=== PATIENT | female | born 1965 | race African-American/Black ===

== ENCOUNTER 2016-06-12 11:26 | Emergency (ER) | payer BC, MEDICAID ==
[~2016-06-12] VITALS: Ht 162.6 cm; Wt 64.5 kg
[~2016-06-12 11:26] MED LIST: DICL50TA3 PO; HYDR-3533 PO; METH750T2 PO; METHO500 PO; NORV5TAB PO; PRAV10 PO
[2016-06-12 11:31] VITALS: BP 122/81; PULSE 96; RESP 16; TEMP 99.6; O2SAT 98
[2016-06-12] MEDS ORDERED: AMLO5TAB2 PO (11:39)
[2016-06-12] MEDS ORDERED: IBUPROFEN 800 MG TAB PO ONE (11:45)
[2016-06-12] MEDS ORDERED: SODIUM CHLOR 0.9% 1000 ML INJ 1,000 ML IV ONE (11:45)
--- NOTE | 2016-06-12 11:59 | PD ---
HPI Chief Complaint: Cold / Flu Symptoms Time Seen by Provider: 11:45 Travel History International Travel<30 days: No Contact w/Intl Traveler<30days: No Traveled to known affect area: No History of Present Illness HPI Patient is a 50-year-old female who presents emergency department for evaluation of cough, fevers, muscle aches, weakness, congestion. Patient's symptoms started approximately 3 days ago, she reports decreased appetite and poor oral intake. She states she's had a fever for the last 3 days, taking ibuprofen and BC powder. The BC powder was last dosed approximately 3 hours ago. Patient reports coughing up yellow-green sputum, patient endorses tobacco use. Patient states that muscle aches in her legs have gotten progressively worse, more so on the right than the left. Patient states she has a history of rhabdomyolysis and her symptoms feel consistent with what she has had in the past. Patient denies any IV drug use. She reports her pain is a 7-10 and describes as aching PFSH Past Medical History Hx Anticoagulant Therapy: No Arthritis: Yes (RHEUMATOID STARTED JUVENILE ) Anxiety: Yes Depression: No Cancer: No Cardiovascular Problems: Yes (HTN) High Cholesterol: Yes Diabetes: No Diminished Hearing: No Endocrine: No Headaches: Yes Hypertension: Yes Immune Disorder: No Psychiatric: Yes Migraines: Yes ?: Not Tubal Ligation: Yes (1986) Past Surgical History Gynecologic Surgery: Yes (TUBAL LIGATION, HYSTERECTOMY ) Hysterectomy: Yes Oral Surgery: Yes (TONSILLECTOMY ) Tonsillectomy: Yes (AGE 23) Other Surgery: Yes Social History Alcohol Use: No Tobacco Use: No Substance Use: No Allergies-Medications (Allergen,Severity, Reaction): Coded Allergies: No Known Allergies (Verified , 06/12/16) Reported Meds & Prescriptions Reported Meds & Active Scripts Active Reported Amlodipine (Amlodipine Besylate) 5 Mg Tab 5 Mg PO DAILY Review of Systems Except as stated in HPI: all other systems reviewed are Neg General / Constitutional: Positive: Fever, Chills, Other (fatigue) HENT: Positive: Congestion, No: Headaches, Lightheadedness Cardiovascular: No: Chest Pain or Discomfort Respiratory: Positive: Cough, Pleuritic Pain Gastrointestinal: No: Nausea, Vomiting, Diarrhea, Abdominal Pain Musculoskeletal: Positive: Myalgias, Pain Neurologic: Positive: Weakness, No: Dizziness, Syncope, Focal Abnormalities Physical Exam Narrative GENERAL: Thin, well-developed, alert female. Appears uncomfortable, in no acute distress. SKIN: Warm and dry. HEAD: Atraumatic. Normocephalic. EYES: Pupils equal and round. No scleral icterus. No injection or drainage. ENT: No nasal bleeding or discharge. Mucous membranes pink and moist. NECK: Trachea midline. No JVD. CARDIOVASCULAR: Regular rate and rhythm. No murmur appreciated. RESPIRATORY: No accessory muscle use. Diminished in bases bilaterally, no wheezes, rhonchi, or rales noted. GASTROINTESTINAL: Abdomen soft, non-tender, nondistended. Hepatic and splenic margins not palpable. MUSCULOSKELETAL: No obvious deformities. No clubbing. No cyanosis. No edema. Tenderness to palpation in bilateral thighs, ankles. 4/5 muscle strength in bilateral lower extremities. Positive pedal pulses. NEUROLOGICAL: Awake and alert. No obvious cranial nerve deficits. Normal speech. PSYCHIATRIC: Appropriate mood and affect; insight and judgment normal. Data Data Last Documented VS Vital Signs Date Time Temp Pulse Resp B/P Pulse Ox O2 Delivery O2 Flow Rate FiO2 06/12/16 11:31 99.6 96 16 122/81 98 Orders Complete Blood Count With Diff (06/12/16 11:43) Creatine Kinase (Cpk) (06/12/16 11:43) Comprehensive Metabolic Panel (06/12/16 11:43) Influenzae A/B Antigen (06/12/16 11:43) Iv Access Insert/Monitor (06/12/16 11:43) Ibuprofen (Motrin) (06/12/16 11:45) Sodium Chlor 0.9% 1000 Ml Inj (Ns 1000 M (06/12/16 11:45) Chest, Pa & Lat (06/12/16 ) CKMB (06/12/16 11:50) CKMB% (06/12/16 11:50) Labs Laboratory Tests Test 06/12/16 11:50 White Blood Count 6.2 TH/MM3 Red Blood Count 4.74 MIL/MM3 Hemoglobin 14.4 GM/DL Hematocrit 42.4 % Mean Corpuscular Volume 89.5 FL Mean Corpuscular Hemoglobin 30.4 PG Mean Corpuscular Hemoglobin 33.9 % Concent Red Cell Distribution Width 13.6 % Platelet Count 293 TH/MM3 Mean Platelet Volume 7.3 FL Neutrophils (%) (Auto) 73.2 % Lymphocytes (%) (Auto) 11.6 % Monocytes (%) (Auto) 12.5 % Eosinophils (%) (Auto) 1.9 % Basophils (%) (Auto) 0.8 % Neutrophils # (Auto) 4.6 TH/MM3 Lymphocytes # (Auto) 0.7 TH/MM3 Monocytes # (Auto) 0.8 TH/MM3 Eosinophils # (Auto) 0.1 TH/MM3 Basophils # (Auto) 0.0 TH/MM3 CBC Comment DIFF FINAL Differential Comment Sodium Level 143 MEQ/L Potassium Level 3.7 MEQ/L Chloride Level 110 MEQ/L Carbon Dioxide Level 24.6 MEQ/L Anion Gap 8 MEQ/L Blood Urea Nitrogen 12 MG/DL Creatinine 0.68 MG/DL Estimat Glomerular Filtration 110 ML/MIN Rate Random Glucose 74 MG/DL Calcium Level 7.9 MG/DL Total Bilirubin 0.2 MG/DL Aspartate Amino Transf 16 U/L (AST/SGOT) Alanine Aminotransferase 19 U/L (ALT/SGPT) Alkaline Phosphatase 86 U/L Total Creatine Kinase 215 U/L Creatine Kinase MB 0.7 NG/ML Creatine Kinase MB % 0.3 % Total Protein 6.9 GM/DL Albumin 3.4 GM/DL MDM Medical Decision Making Medical Screen Exam Complete: Yes Emergency Medical Condition: Yes Interpretation(s) Last Impressions Chest X-Ray 06/12/16 0000 Signed Impressions: Service Date/Time: Sunday, June 12, 2016 13:05 - CONCLUSION: No acute cardiopulmonary abnormality is identified. Vlad Hart MD Laboratory Tests Test 06/12/16 11:50 White Blood Count 6.2 TH/MM3 Red Blood Count 4.74 MIL/MM3 Hemoglobin 14.4 GM/DL Hematocrit 42.4 % Mean Corpuscular Volume 89.5 FL Mean Corpuscular Hemoglobin 30.4 PG Mean Corpuscular Hemoglobin 33.9 % Concent Red Cell Distribution Width 13.6 % Platelet Count 293 TH/MM3 Mean Platelet Volume 7.3 FL Neutrophils (%) (Auto) 73.2 % Lymphocytes (%) (Auto) 11.6 % Monocytes (%) (Auto) 12.5 % Eosinophils (%) (Auto) 1.9 % Basophils (%) (Auto) 0.8 % Neutrophils # (Auto) 4.6 TH/MM3 Lymphocytes # (Auto) 0.7 TH/MM3 Monocytes # (Auto) 0.8 TH/MM3 Eosinophils # (Auto) 0.1 TH/MM3 Basophils # (Auto) 0.0 TH/MM3 CBC Comment DIFF FINAL Differential Comment Sodium Level 143 MEQ/L Potassium Level 3.7 MEQ/L Chloride Level 110 MEQ/L Carbon Dioxide Level 24.6 MEQ/L Anion Gap 8 MEQ/L Blood Urea Nitrogen 12 MG/DL Creatinine 0.68 MG/DL Estimat Glomerular Filtration 110 ML/MIN Rate Random Glucose 74 MG/DL Calcium Level 7.9 MG/DL Total Bilirubin 0.2 MG/DL Aspartate Amino Transf 16 U/L (AST/SGOT) Alanine Aminotransferase 19 U/L (ALT/SGPT) Alkaline Phosphatase 86 U/L Total Creatine Kinase 215 U/L Creatine Kinase MB 0.7 NG/ML Creatine Kinase MB % 0.3 % Total Protein 6.9 GM/DL Albumin 3.4 GM/DL Vital Signs Date Time Temp Pulse Resp B/P Pulse Ox O2 Delivery O2 Flow Rate FiO2 06/12/16 11:31 99.6 96 16 122/81 98 Differential Diagnosis Bronchitis versus pneumonia versus rhabdomyolysis versus influenza versus myalgias versus viral syndrome versus other Narrative Course Patient is a 50-year-old female who presents emergency department for evaluation of myalgias, fever, cough. Patient is a history of rhabdomyolysis, that coupled with her physical presentation and reported fevers for the last 3 days prompted labs and imaging. CBC and chemistry are unremarkable, CPK is very slightly elevated at 215. Chest x-ray is normal, influenza is negative. Patient is encouraged to continue symptom management. She will also be provided with a prescription for an antibiotic, due to the fevers, and her tobacco use she may be prone to atypical bacteria. Additionally patient has chronic muscle aches in her lower extremities, this seems to be exacerbated by her current illness. Patient will be provided with a prescription for a muscle relaxer. She is encouraged follow-up with her primary doctor or return to emergency department for any new or worsening symptoms. Patient verbalized understanding of these instructions. Patient is stable for discharge. Diagnosis Primary Impression: Acute bronchitis Qualified Code: J20.9 - Acute bronchitis, unspecified organism Additional Impression: Myalgia Referrals: Primary Care Physician 2 days Patient Instructions: Acute Bronchitis (ED), General Instructions Additional Instructions: Continue symptom management Take medications as directed Maintain adequate fluid intake Follow-up with your primary doctor Return to emergency department for any new or worsening symptoms Med/Other Pt SpecificInfo: Prescription(s) given Scripts Albuterol 18 GM Inh (Ventolin Hfa 18 GM Inh)90 Mcg/Act Aer2 Puff INH Q4-6H PRN ( SHORTNESS OF BREATH) #1 INHALER Ref 0 Prov:Aneta Macias 06/12/16 Azithromycin 250 Mg [id number] Mg PO DIRECTED #6 TAB Ref 0 Take 2 tabs (500 mg) on day 1 then 1 tab daily x 4 days. Prov:Aneta Macias 06/12/16 Cyclobenzaprine (Flexeril)10 Mg Tab10 Mg PO TID PRN (MUSCLE SPASM) 10 Days Ref 0 Prov:Aneta Macias 06/12/16 Ibuprofen 800 Mg [id number] Mg PO Q6HR PRN (PAIN) #40 TAB Ref 0 Prov:Aneta Macias 06/12/16 Disposition: 01 DISCHARGE HOME Condition: Stable Aneta Macias Jun 12, 2016 11:59
[2016-06-12 12:02] LABS: AUTOMATED NEUTROPHIL # 4.6 TH/MM3 (1.8-7.7); BASOPHIL % 0.8 % (0.0-2.0); EOSINOPHIL # 0.1 TH/MM3 (0-0.4); EOSINOPHIL % 1.9 % (0.0-4.0); HEMATOCRIT 42.4 % (35.0-46.0); HEMO FLAGS DIFF FINAL; LYMPH % 11.6 % (9.0-44.0); LYMPHOCYTE # 0.7 TH/MM3 (1.0-4.8); MEAN CELL VOLUME 89.5 FL (80.0-100.0); MEAN CORPUSCULAR HEMOGLOBIN 30.4 PG (27.0-34.0); MEAN CORPUSCULAR HGB CONC 33.9 % (32.0-36.0); MONO % 12.5 % (0.0-8.0); NEUT % 73.2 % (16.0-70.0); PLATELET COUNT 293 TH/MM3 (150-450); RED BLOOD COUNT 4.74 MIL/MM3 (4.00-5.30); RED CELL DISTRIBUTION WIDTH 13.6 % (11.6-17.2); WHITE BLOOD COUNT 6.2 TH/MM3 (4.0-11.0)
[2016-06-12 12:08] LABS: CHLORIDE 110 MEQ/L (98-107); POTASSIUM 3.7 MEQ/L (3.5-5.1); SODIUM (NA) 143 MEQ/L (136-145)
[2016-06-12 12:12] LABS: ANION GAP 8 MEQ/L (5-15); BICARBONATE 24.6 MEQ/L (21.0-32.0); BLOOD UREA NITROGEN 12 MG/DL (7-18)
[2016-06-12 12:15] LABS: ALT (GPT) 19 U/L (10-53); AST (GOT) 16 U/L (15-37); GLOMERULAR FILTRATION RATE 110 ML/MIN (>89)
[2016-06-12 12:16] LABS: TOTAL BILIRUBIN ADULT 0.2 MG/DL (0.2-1.0)
[2016-06-12 12:18] LABS: ALKALINE PHOSPHATASE 86 U/L (45-117); CREATINE KINASE 215 U/L (26-192)
[2016-06-12 13:00] LABS: CKMB 0.7 NG/ML (0.5-3.6)
--- NOTE | 2016-06-12 13:27 | RADHPO ---
EXAM DATE/TIME: 06/12/2016 13:05 [facility] COMPARISON: No previous studies available for comparison. INDICATIONS : Cough, fever, short of breath MEDICAL HISTORY : None. SURGICAL HISTORY : None. ENCOUNTER: Initial ACUITY: 3 days PAIN SCORE: 0/10 LOCATION: Bilateral chest FINDINGS: PA and lateral views of the chest demonstrate a normal-sized cardiac silhouette. There is no effusion , consolidation, or pneumothorax. The bones and soft tissues demonstrate no acute abnormality. CONCLUSION: No acute cardiopulmonary abnormality is identified. Vlad Hart MD on June 12, 2016 at 13:25 Board Certified Radiologist. This report was verified electronically.
[2016-06-12] MEDS ORDERED: CYCL1TAB29 PO (13:56)
[2016-06-12] MEDS ORDERED: AZIT250T3 PO (13:56)
[2016-06-12] MEDS ORDERED: IBUP800T23 PO (13:56)
[2016-06-12] MEDS ORDERED: VENTAER INH (13:56)
[2016-06-12] MEDS ORDERED: HYDR1SOL20 PO (13:59)
[2016-06-12 14:26] VITALS: BP 111/69
== END 2016-06-12 14:32 | disposition home or self-care (01) ==
LOC: PHEFT 11:26
DX: J20.9 Acute bronchitis, unspecified (principal); M79.1 Myalgia; R50.9 Fever, unspecified; I10 Essential (primary) hypertension; E78.00 Pure hypercholesterolemia, unspecified; Z72.0 Tobacco use; Z87.39 Personal history of other diseases of the musculoskeletal system and connective tissue; Z86.59 Personal history of other mental and behavioral disorders; Z86.69 Personal history of other diseases of the nervous system and sense organs
CPT/HCPCS: 71020; 80053; 82550; 82552; 85025; 87804; 96360; 99285; J7030

== ENCOUNTER 2016-09-10 18:36 | Emergency (ER) | payer BC ==
[~2016-09-10] VITALS: Ht 162.6 cm; Wt 66.7 kg
[~2016-09-10 18:36] MED LIST changes: +AMLO5TAB2 PO; +AZIT250T3 PO; +CYCL1TAB29 PO; -DICL50TA3 PO; -HYDR-3533 PO; +HYDR1SOL20 PO; +IBUP800T23 PO; -METH750T2 PO; -METHO500 PO; -NORV5TAB PO; -PRAV10 PO; +VENTAER INH
[2016-09-10 18:45] VITALS: BP 86/63; PULSE 74; RESP 18; TEMP 98.2; O2SAT 96
[2016-09-10] MEDS ORDERED: CETI10 PO (18:52)
[2016-09-10] MEDS ORDERED: GABA300C5 PO (18:52)
[2016-09-10 18:54] VITALS: BP 90/69; PULSE 66; RESP 18; O2SAT 100
--- NOTE | 2016-09-10 18:58 | PD ---
HPI Chief Complaint: Altered Mental Status Time Seen by Provider: 18:51 Travel History International Travel<30 days: No Contact w/Intl Traveler<30days: No Traveled to known affect area: No History of Present Illness HPI Patient is a 50-year-old female with history of hypertension, hyperlipidemia who presents to emergency room after a near syncopal episode while in the waiting room. As per patient, reports that she has been sick and laying in bed for the past 4 days. Reports that she has been having increased nausea, vomiting and diarrhea. Reports pain to lower abdomen. Reports that she has had increased sciatic pain down her legs as well. Patient reports decreased oral intake for the past 4 days. Patient denies any chest pain or shortness of breath. Patient reports fevers or chills. Patient reports no sick contacts. PFSH Past Medical History Hx Anticoagulant Therapy: No Arthritis: Yes (RHEUMATOID STARTED JUVENILE ) Anxiety: Yes Depression: No Cancer: No Cardiovascular Problems: Yes (HTN) High Cholesterol: Yes Diabetes: No Diminished Hearing: No Endocrine: No Headaches: Yes Hypertension: Yes Immune Disorder: No Psychiatric: Yes Migraines: Yes Influenza Vaccination: No ?: Not Tubal Ligation: Yes (1986) Past Surgical History Gynecologic Surgery: Yes (TUBAL LIGATION, HYSTERECTOMY ) Hysterectomy: Yes Oral Surgery: Yes (TONSILLECTOMY ) Tonsillectomy: Yes (AGE 23) Other Surgery: Yes Social History Alcohol Use: No Tobacco Use: No Substance Use: No Allergies-Medications (Allergen,Severity, Reaction): Coded Allergies: No Known Allergies (Verified , 09/10/16) Reported Meds & Prescriptions Reported Meds & Active Scripts Active Flexeril (Cyclobenzaprine HCl) 10 Mg Tab 10 Mg PO TID PRN 10 Days Reported Cetirizine (Cetirizine HCl) 10 Mg Tab 10 Mg PO DAILY Gabapentin 300 Mg Cap 300 Mg PO HS Amlodipine (Amlodipine Besylate) 5 Mg Tab 5 Mg PO DAILY Review of Systems General / Constitutional: Positive: Fever, Chills Eyes: No: Visual changes HENT: No: Headaches Cardiovascular: No: Chest Pain or Discomfort Respiratory: No: Shortness of Breath Gastrointestinal: Positive: Nausea, Vomiting, Diarrhea, No: Abdominal Pain Genitourinary: No: Dysuria Musculoskeletal: No: Pain Skin: No Rash Neurologic: No: Weakness Psychiatric: No: Depression Endocrine: No: Polydipsia Hematologic/Lymphatic: No: Easy Bruising Physical Exam Narrative GENERAL: moderate distress SKIN: Focused skin assessment warm/dry. HEAD: Atraumatic. Normocephalic. EYES: Pupils equal and round. No scleral icterus. No injection or drainage. ENT: No nasal bleeding or discharge. Mucous membranes pink and moist. NECK: Trachea midline. No JVD. CARDIOVASCULAR: Regular rate and rhythm. No murmur appreciated. RESPIRATORY: No accessory muscle use. Clear to auscultation. Breath sounds equal bilaterally. GASTROINTESTINAL: Abdomen soft, tenderness to lower abdomen with no rebound or guarding MUSCULOSKELETAL: No obvious deformities. No clubbing. No cyanosis. No edema. NEUROLOGICAL: Awake and alert. No obvious cranial nerve deficits. Motor grossly within normal limits. Normal speech. PSYCHIATRIC: Appropriate mood and affect; insight and judgment normal. Data Data Last Documented VS Vital Signs Date Time Temp Pulse Resp B/P Pulse Ox O2 Delivery O2 Flow Rate FiO2 09/10/16 18:54 66 18 90/69 100 Room Air 09/10/16 18:45 98.2 Orders Electrocardiogram (09/10/16 18:49) Complete Blood Count With Diff (09/10/16 18:49) Comprehensive Metabolic Panel (09/10/16 18:49) Prothrombin Time / Inr (Pt) (09/10/16 18:49) Act Partial Throm Time (Ptt) (09/10/16 18:49) Lactic Acid Sepsis Protocol (09/10/16 18:49) Magnesium (Mg) (09/10/16 18:49) Lipase (09/10/16 18:49) Ckmb (Isoenzyme) Profile (09/10/16 18:49) Troponin I (09/10/16 18:49) Urinalysis - C+S If Indicated (09/10/16 18:49) Influenzae A/B Antigen (09/10/16 18:49) Blood Culture (09/10/16 18:49) Chest, Single Ap (09/10/16 18:49) Blood Glucose (09/10/16 18:49) Ecg Monitoring (09/10/16 18:49) Iv Access Insert/Monitor (09/10/16 18:49) Oximetry (09/10/16 18:49) Oxygen Administration (09/10/16 18:49) Sodium Chlor 0.9% 1000 Ml Inj (Ns 1000 M (09/10/16 19:00) Sodium Chlor 0.9% 1000 Ml Inj (Ns 1000 M (09/10/16 19:00) Ct Abd/Pel W Iv Contrast(Rout) (09/10/16 18:53) Ed Urine Pregnancytest Poc (09/10/16 18:53) Labs Laboratory Tests Test 09/10/16 18:50 White Blood Count 7.6 TH/MM3 Red Blood Count 4.85 MIL/MM3 Hemoglobin 14.5 GM/DL Hematocrit 43.8 % Mean Corpuscular Volume 90.5 FL Mean Corpuscular Hemoglobin 29.9 PG Mean Corpuscular Hemoglobin 33.0 % Concent Red Cell Distribution Width 13.5 % Platelet Count 303 TH/MM3 Mean Platelet Volume 7.4 FL Neutrophils (%) (Auto) 55.8 % Lymphocytes (%) (Auto) 24.9 % Monocytes (%) (Auto) 17.7 % Eosinophils (%) (Auto) 0.1 % Basophils (%) (Auto) 1.5 % Neutrophils # (Auto) 4.3 TH/MM3 Lymphocytes # (Auto) 1.9 TH/MM3 Monocytes # (Auto) 1.3 TH/MM3 Eosinophils # (Auto) 0.0 TH/MM3 Basophils # (Auto) 0.1 TH/MM3 CBC Comment DIFF FINAL Differential Comment Sodium Level 137 MEQ/L Potassium Level 3.8 MEQ/L Chloride Level 105 MEQ/L Carbon Dioxide Level 23.4 MEQ/L Anion Gap 9 MEQ/L Blood Urea Nitrogen 16 MG/DL Random Glucose 108 MG/DL Calcium Level 8.0 MG/DL Magnesium Level 1.8 MG/DL Albumin 3.1 GM/DL Lipase 139 U/L MDM Medical Decision Making Medical Screen Exam Complete: Yes Emergency Medical Condition: Yes Interpretation(s) Vital Signs Date Time Temp Pulse Resp B/P Pulse Ox O2 Delivery O2 Flow Rate FiO2 09/10/16 18:45 74 18 86/63 96 Differential Diagnosis ACS, sepsis, acute appendicitis, gastroenteritis, gastritis, acute cholecystitis , UTI, electrolyte abnormality, pneumonia, influenza, dehydration Narrative Course 50-year-old female who presents to emergency room with complaints of nausea vomiting and diarrhea for the past 4 days. She reports that she began having fevers and chills, reports that she isn't sleeping in bed and has not been able to get out of bed for past 4 days. Patient presents the emergency room lethargic and with near syncopal episodes while in the waiting room. Patient blood sugar was 116 upon arrival to ER. Patient was hypotensive with a blood pressure 86/63. Patient was placed on a corporate legal assistant upon arrival to emergency room. EKG obtained, patient with no acute ST-T wave changes. Labs including blood cultures ordered. X-ray chest ordered. Patient with lower abdominal pain, CT abdomen pelvis ordered. Patient signed out to Dr. Weston at change of shift. Will follow up with all labs and studies and will disposition patient TundeMicki Sep 10, 2016 18:58
[2016-09-10] MEDS ORDERED: SODIUM CHLOR 0.9% 1000 ML INJ 1,000 ML IV ONE ×2 (19:00)
[2016-09-10 19:05] LABS: AUTOMATED NEUTROPHIL # 4.3 TH/MM3 (1.8-7.7); BASOPHIL # 0.1 TH/MM3 (0-0.2); BASOPHIL % 1.5 % (0.0-2.0); EOSINOPHIL % 0.1 % (0.0-4.0); HEMATOCRIT 43.8 % (35.0-46.0); HEMO FLAGS DIFF FINAL; LYMPH % 24.9 % (9.0-44.0); LYMPHOCYTE # 1.9 TH/MM3 (1.0-4.8); MEAN CELL VOLUME 90.5 FL (80.0-100.0); MEAN CORPUSCULAR HEMOGLOBIN 29.9 PG (27.0-34.0); MONO % 17.7 % (0.0-8.0); NEUT % 55.8 % (16.0-70.0); PLATELET COUNT 303 TH/MM3 (150-450); RED BLOOD COUNT 4.85 MIL/MM3 (4.00-5.30); RED CELL DISTRIBUTION WIDTH 13.5 % (11.6-17.2); WHITE BLOOD COUNT 7.6 TH/MM3 (4.0-11.0)
[2016-09-10 19:11] LABS: CHLORIDE 105 MEQ/L (98-107); POTASSIUM 3.8 MEQ/L (3.5-5.1); SODIUM (NA) 137 MEQ/L (136-145)
[2016-09-10 19:15] LABS: ANION GAP 9 MEQ/L (5-15); BICARBONATE 23.4 MEQ/L (21.0-32.0); BLOOD UREA NITROGEN 16 MG/DL (7-18); MAGNESIUM 1.8 MG/DL (1.5-2.5)
[2016-09-10 19:16] LABS: APTT (PATIENT) 31.6 SEC (24.3-30.1); INTERNATIONAL NORMALIZED RATIO 1.1 RATIO; PROTHROMBIN TIME - PATIENT 12.2 SEC (9.8-11.6)
[2016-09-10 19:18] LABS: ALT (GPT) 22 U/L (10-53); AST (GOT) 28 U/L (15-37); GLOMERULAR FILTRATION RATE 63 ML/MIN (>89)
[2016-09-10 19:19] LABS: TOTAL BILIRUBIN ADULT 0.3 MG/DL (0.2-1.0)
[2016-09-10 19:20] LABS: CREATINE KINASE 309 U/L (26-192)
[2016-09-10 19:21] LABS: ALKALINE PHOSPHATASE 69 U/L (45-117)
--- NOTE | 2016-09-10 19:22 | RADHPO ---
EXAM DATE/TIME: 09/10/2016 18:52 [facility] COMPARISON: CHEST PA & LAT, June 12, 2016, 13:05. INDICATIONS : Syncopal episode. Weakness and shortness of breath. MEDICAL HISTORY : None. SURGICAL HISTORY : None. ENCOUNTER: Initial ACUITY: 1 day PAIN SCORE: 0/10 LOCATION: Bilateral chest FINDINGS: A single view of the chest demonstrates the lungs to be symmetrically aerated without evidence of mas s, infiltrate or effusion. Nipple shadow projects over the lower lateral right lung. The The cardio mediastinal contours are unremarkable. Osseous structures are intact. CONCLUSION: Lungs are clear. Ed Kirk MD on September 10, 2016 at 19:19 Board Certified Radiologist. This report was verified electronically.
[2016-09-10 19:29] VITALS: BP 101/70; PULSE 62; RESP 20; O2SAT 96
[2016-09-10 19:33] LABS: CKMB 0.5 NG/ML (0.5-3.6)
[2016-09-10 20:12] VITALS: BP 108/68; PULSE 64; RESP 20; TEMP 98.5; O2SAT 97
--- NOTE | 2016-09-10 20:14 | RADHPO ---
EXAM DATE/TIME: 09/10/2016 19:46 [facility] COMPARISON: CT ABDOMEN & PELVIS W CONTRAST, May 23, 2015, 12:30. INDICATIONS : Lower abdominal pain with nausea, vomiting, and diarrhea. IV CONTRAST: 94 cc Omnipaque 350 (iohexol) IV ORAL CONTRAST: No oral contrast ingested. RADIATION DOSE: 7.13 CTDIvol (mGy) MEDICAL HISTORY : Hypertension. Rheumatoid arthritis. SURGICAL HISTORY : Hysterectomy. ENCOUNTER: Initial ACUITY: 4 - 6 days PAIN SCALE: 7/10 LOCATION: Bilateral lower quadrant TECHNIQUE: Volumetric scanning of the abdomen and pelvis was performed. Using automated exposure control and ad justment of the mA and/or kV according to patient size, radiation dose was kept as low as reasonably achievable to obtain optimal diagnostic quality images. FINDINGS: LOWER LUNGS: The visualized lower lungs are clear. LIVER: Homogeneous density without lesion. There is no dilation of the biliary tree. No calcified gallston es. SPLEEN: Normal size without lesion. PANCREAS: Within normal limits. KIDNEYS: Normal in size and shape. There is no mass, stone or hydronephrosis. ADRENAL GLANDS: Within normal limits. VASCULAR: There is no aortic aneurysm. BOWEL/MESENTERY: The stomach, small bowel, and colon demonstrate no acute abnormality. There is no free intraperitone al air or fluid. ABDOMINAL WALL: Within normal limits. RETROPERITONEUM: There is no lymphadenopathy. BLADDER: No wall thickening or mass. REPRODUCTIVE: Hysterectomy. No evidence of free fluid. INGUINAL: There is no lymphadenopathy or hernia. MUSCULOSKELETAL: Within normal limits for patient age. CONCLUSION: Negative CT abdomen/pelvis with contrast. Ed Kirk MD on September 10, 2016 at 20:10 Board Certified Radiologist. This report was verified electronically.
[2016-09-10] MEDS ORDERED: IOHEXOL 350 MG/ML 10 ML VIAL (for RAD DIAG) IV ONE (20:25)
--- NOTE | 2016-09-10 20:35 | PD ---
Physical Exam Time Seen by Provider: 20:[address] Griffiths left this patient with me to check the CT scan and make a disposition. Data Data Last Documented VS Vital Signs Date Time Temp Pulse Resp B/P Pulse Ox O2 Delivery O2 Flow Rate FiO2 09/10/16 20:12 98.5 64 20 108/68 97 Room Air Orders Electrocardiogram (09/10/16 18:49) Complete Blood Count With Diff (09/10/16 18:49) Comprehensive Metabolic Panel (09/10/16 18:49) Prothrombin Time / Inr (Pt) (09/10/16 18:49) Act Partial Throm Time (Ptt) (09/10/16 18:49) Lactic Acid Sepsis Protocol (09/10/16 18:49) Magnesium (Mg) (09/10/16 18:49) Lipase (09/10/16 18:49) Ckmb (Isoenzyme) Profile (09/10/16 18:49) Troponin I (09/10/16 18:49) Urinalysis - C+S If Indicated (09/10/16 18:49) Influenzae A/B Antigen (09/10/16 18:49) Blood Culture (09/10/16 18:49) Chest, Single Ap (09/10/16 18:49) Blood Glucose (09/10/16 18:49) Ecg Monitoring (09/10/16 18:49) Iv Access Insert/Monitor (09/10/16 18:49) Oximetry (09/10/16 18:49) Oxygen Administration (09/10/16 18:49) Sodium Chlor 0.9% 1000 Ml Inj (Ns 1000 M (09/10/16 19:00) Sodium Chlor 0.9% 1000 Ml Inj (Ns 1000 M (09/10/16 19:00) Ct Abd/Pel W Iv Contrast(Rout) (09/10/16 18:53) CKMB (09/10/16 18:50) CKMB% (09/10/16 18:50) Iohexol 350 Inj (Omnipaque 350 Inj) (09/10/16 20:25) Ondansetron Inj (Zofran Inj) (09/10/16 21:15) Labs Laboratory Tests Test 09/10/16 09/10/16 18:50 21:00 White Blood Count 7.6 TH/MM3 Red Blood Count 4.85 MIL/MM3 Hemoglobin 14.5 GM/DL Hematocrit 43.8 % Mean Corpuscular Volume 90.5 FL Mean Corpuscular Hemoglobin 29.9 PG Mean Corpuscular Hemoglobin 33.0 % Concent Red Cell Distribution Width 13.5 % Platelet Count 303 TH/MM3 Mean Platelet Volume 7.4 FL Neutrophils (%) (Auto) 55.8 % Lymphocytes (%) (Auto) 24.9 % Monocytes (%) (Auto) 17.7 % Eosinophils (%) (Auto) 0.1 % Basophils (%) (Auto) 1.5 % Neutrophils # (Auto) 4.3 TH/MM3 Lymphocytes # (Auto) 1.9 TH/MM3 Monocytes # (Auto) 1.3 TH/MM3 Eosinophils # (Auto) 0.0 TH/MM3 Basophils # (Auto) 0.1 TH/MM3 CBC Comment DIFF FINAL Differential Comment Prothrombin Time 12.2 SEC Prothromb Time International 1.1 RATIO Ratio Activated Partial 31.6 SEC Thromboplast Time Sodium Level 137 MEQ/L Potassium Level 3.8 MEQ/L Chloride Level 105 MEQ/L Carbon Dioxide Level 23.4 MEQ/L Anion Gap 9 MEQ/L Blood Urea Nitrogen 16 MG/DL Creatinine 1.10 MG/DL Estimat Glomerular Filtration 63 ML/MIN Rate Random Glucose 108 MG/DL Lactic Acid Level 1.2 mmol/L Calcium Level 8.0 MG/DL Magnesium Level 1.8 MG/DL Total Bilirubin 0.3 MG/DL Aspartate Amino Transf 28 U/L (AST/SGOT) Alanine Aminotransferase 22 U/L (ALT/SGPT) Alkaline Phosphatase 69 U/L Total Creatine Kinase 309 U/L Creatine Kinase MB 0.5 NG/ML Creatine Kinase MB % 0.2 % Troponin I LESS THAN 0.02 NG/ML Total Protein 6.7 GM/DL Albumin 3.1 GM/DL Lipase 139 U/L Urine Color YELLOW Urine Turbidity CLEAR Urine pH 6.0 Urine Specific [place] 1.034 Urine Protein NEG mg/dL Urine Glucose (UA) NEG mg/dL Urine Ketones NEG mg/dL Urine Occult Blood TRACE Urine Nitrite NEG Urine Bilirubin NEG Urine Leukocyte Esterase NEG Urine RBC 0-3 /hpf Urine WBC 0-2 /hpf Urine Squamous Epithelial 0-5 /hpf Cells Urine Bacteria NONE /hpf Microscopic Urinalysis Comment CULT NOT INDICATED MDM Medical Record Reviewed: Yes Supervised Visit with AMY: Yes Interpretation(s) The EKG shows sinus rhythm with rate of [address] elevation or depression but there is a right bundle branch block. The CBC is normal. The coagulation profile shows a ProTime of 12.2 and a PTT of 31.6 with an INR 1.1. The complete metabolic profile shows a creatinine 1.1, GFR of 63, calcium 8.0 with total CK of 309 but CK-MB and CK MB percentage are both normal. The troponin I is less than 0.2. The albumin is 3.1. The lipase is normal. The lactic acid is 1.2. Differential Diagnosis Viral gastritis, electrolyte disorder, dehydration, cardiac syncopeunlikely, sepsis, gastroenteritis, cholecystitis, appendicitis Narrative Course It is now 8:31 PM and the patient does feel slightly better. She is still weak and appears still somewhat dehydrated. She has had 4 days of diarrhea to do this. She is now sipping Gatorade by mouth. It is now 9:47 PM and the patient is not nauseated and has urinated and has successfully been drinking Gatorade. Plan: The patient will be given Phenergan and she should encourage clear liquids. Follow-up with her primary care physician next week. Diagnosis Primary Impression: Gastroenteritis Additional Impressions: Moderate dehydration Syncopal episodes Additional Instruction: As we discussed, take the Zofran 3 times daily for the next few days to make sure you do not get nauseated and started vomiting. We will write you a 5 day work excuse. In those 5 days you should work on hydrating her self well. You came in dehydrated. Follow-up next week with your primary care physician. Med/Other Pt SpecificInfo: Prescription(s) given Scripts Ondansetron (Zofran)8 Mg Tab8 Mg PO TID #30 TAB Ref 0 Prov:Seymour Weston MD 09/10/16 Disposition: 01 DISCHARGE HOME Condition: Stable Seymour Weston MD Sep 10, 2016 20:35
[2016-09-10 21:00] VITALS: BP 120/76; PULSE 92; RESP 20; O2SAT 97
[2016-09-10 21:03] LABS: BLOOD, URINE TRACE (NEG); GLUCOSE,URINE NEG (NEG); KETONE, URINE NEG (NEG); NITRITE,URINE NEG (NEG)
[2016-09-10 21:12] LABS: COMMENT (UR) CULT NOT INDICATED; CULTURE IF INDICATED CULT NOT INDICATED; RBC, URINE 0-3 /hpf (0-3); SQUAMOUS EPITHELIAL CELL URINE 0-5 /hpf (0-5); URINE COLOR YELLOW (YELLW/STRAW); WBC, URINE 0-2 /hpf (0-5)
[2016-09-10] MEDS ORDERED: ONDANSETRON HCL 4 MG/2 ML VIAL IV ONE (21:15)
[2016-09-10] MEDS ORDERED: ZOFR8TAB PO (21:31)
[2016-09-10 22:10] VITALS: BP 120/76
--- NOTE | 2016-09-11 13:38 | EKG ---
Date Performed: 09/10/2016 Time Performed: 18:45:08 PTAGE: 50 years EKG: Sinus rhythm . Right axis deviation Right bundle branch block Abnormal ECG NO PREVIOUS TRACING DOCTOR: Christiano Franco Interpretating Date/Time 09/11/2016 13:33:39
== END 2016-09-10 22:18 | disposition home or self-care (01) ==
LOC: PHED 18:36
DX: K52.9 Noninfective gastroenteritis and colitis, unspecified (principal); E86.0 Dehydration; R55 Syncope and collapse; R94.31 Abnormal electrocardiogram [ECG] [EKG]; I10 Essential (primary) hypertension; E78.00 Pure hypercholesterolemia, unspecified; I95.9 Hypotension, unspecified
CPT/HCPCS: 71010; 74177; 80053; 81001; 82550; 82552; 83605; 83690; 83735; 84484; 85025; 85610; 85730; 87040; 87804; 93005; 96361; 96374; 99285; J2405; J7030; Q9967